=== PATIENT | male | born 1990 | race African-American/Black ===

== ENCOUNTER 2018-03-28 14:13 | Emergency (ER) | payer SELFPAY ==
[2018-03-28 15:08] LABS: ADD MAN DIFF? NO
[2018-03-28 15:10] LABS: BASO % 0 % (0-3); EOS % 0 % (0-3); HEMATOCRIT 44.5 % (39.0-53.0); HEMOGLOBIN 15.4 g/dL (13.0-17.5); LYMPH # 1.7 x10^3/uL (1.0-4.8); LYMPH % 20 % (24-48); MEAN CORPUSCULAR HEMOGLOBIN 33 pg (25-35); MEAN CORPUSCULAR HGB CONC 35 g/dL (31-37); MEAN CORPUSCULAR VOLUME 96 fL (79-100); MONO # 0.4 x10^3/uL (0.0-1.1); MONO % 5 % (0-9); NEUT # 6.4 x10^3uL (1.8-7.7); NEUT % 74 % (31-73); PLATELET COUNT 260 x10^3/uL (140-400); RED BLOOD COUNT 4.63 x10^6/uL (4.30-5.70); RED CELL DISTRIBUTION WIDTH 12.8 % (11.5-14.5); WHITE BLOOD COUNT 8.6 x10^3/uL (4.0-11.0)
[2018-03-28] MEDS: IV NORMAL SALINE 1000ML BAG 1,000 ML IV ×2 (15:15)
[2018-03-28] MEDS: KETOROLAC 30 MG/ML INJ. IV (15:16)
[2018-03-28] MEDS: PANTOPRAZOLE IV PUSH 40 MG VIAL. IVP (15:17)
[2018-03-28] MEDS: ONDANSETRON PF 4 MG/2 ML VIAL. IV (15:20)
[2018-03-28 15:31] LABS: ANION GAP 8 (6-14); BLOOD UREA NITROGEN 13 mg/dL (8-26); BUN/CREATININE RATIO 14 (6-20); CALCIUM 9.1 mg/dL (8.5-10.1); CARBON DIOXIDE 29 mmol/L (21-32); CHLORIDE 104 mmol/L (98-107); CREATININE 0.9 mg/dL (0.7-1.3); GFR 121.6; GLUCOSE 116 mg/dL (70-99); POTASSIUM 4.3 mmol/L (3.5-5.1); SODIUM 141 mmol/L (136-145)
[2018-03-28 15:35] LABS: ETHANOL < 10 mg/dL (0-10)
[2018-03-28 15:40] LABS: ALBUMIN 4.4 g/dL (3.4-5.0); ALBUMIN/GLOBULIN RATIO 1.5 (1.0-1.7); ALK PHOS 69 U/L (46-116); ALT (SGPT) 25 U/L (16-63); AST (SGOT) 15 U/L (15-37); LIPASE 70 U/L (73-393); TOTAL BILIRUBIN 0.8 mg/dL (0.2-1.0); TOTAL PROTEIN 7.4 g/dL (6.4-8.2)
[2018-03-28 16:15] LABS: BILIRUBIN,URINE NEGATIVE (NEG); CLARITY,URINE CLEAR; COLOR,URINE AMBER; GLUCOSE,URINE NEGATIVE (NEG); NITRITE,URINE NEGATIVE (NEG); PH,URINE 8.5; PROTEIN,URINE 30 mg/dL (NEG-TRACE)
[2018-03-28 16:23] LABS: BARBITURATES NEG (NEG); BENZODIAZEPINES NEG (NEG); CANNABINOIDS POS (NEG); COCAINE NEG (NEG); METHADONE NEG (NEG); OPIATES NEG (NEG); PHENCYCLIDINE NEG (NEG)
[2018-03-28 16:36] LABS: AMPHETAMINE/METHAMPHETAMINE NEG (NEG); ETHANOL, URINE NEG (NEG)
[2018-03-28 16:46] LABS: BACTERIA,URINE FEW /HPF (0-FEW); SQUAMOUS EPITHELIAL CELL,UR FEW /LPF
[2018-03-28] MEDS: IOHEXOL 300 MG/ML 100ML VIAL. IV (16:50)
[2018-03-28] MEDS ORDERED: CONTRAST GIVEN MC (17:00)
[2018-03-28] MEDS: DICYCLOMINE HCL 10 MG CAPSULE PO (17:19)
[2018-03-28] MEDS: HALOPERIDOL LACTATE 5 MG/ML VIAL. IVP (17:20)
[2018-03-28] MEDS: PROMETHAZINE IM 25 MG/ML VIAL IM (17:23)
== END 2018-03-28 18:08 | disposition home or self-care (01) ==
LOC: ER 14:13
DX: K29.70 Gastritis, unspecified, without bleeding (principal); F12.10 Cannabis abuse, uncomplicated; F17.200 Nicotine dependence, unspecified, uncomplicated
CPT/HCPCS: 36415; 74177; 80053; 80307; 81001; 83690; 85025; 96361; 96372; 96374; 96375; 99285-25; C9113; G0480; J1630; J1885; J2405; J2550; J7030; Q9967